=== PATIENT | female | born 1970 | race Caucasian/White ===

== ENCOUNTER 2016-10-08 22:22 | Emergency (ER) | payer MEDICAID ==
[~2016-10-08] VITALS: Ht 162.6 cm; Wt 49.9 kg
[~2016-10-08 22:22] MED LIST: ALBU8.5H5 INH; NAPR500T3 PO; OXYC-229 PO; SUMA50TA3 PO
[2016-10-08] MEDS ORDERED: HYDROcodone/APAP 5/325 TABLET PO STA (23:33)
[2016-10-08] MEDS ORDERED: HYDROcodone/APAP 5/325 TABLET ONE (23:38)
[2016-10-09 01:13] VITALS: BP 128/85
== END 2016-10-09 01:15 | disposition home or self-care (01) ==
LOC: ED 23:26
DX: S83.412A Sprain of medial collateral ligament of left knee, initial encounter (principal); S83.422A Sprain of lateral collateral ligament of left knee, initial encounter; S69.92XA Unspecified injury of left wrist, hand and finger(s), initial encounter; J44.9 Chronic obstructive pulmonary disease, unspecified; X58.XXXA Exposure to other specified factors, initial encounter; Y93.89 Activity, other specified; Y92.89 Other specified places as the place of occurrence of the external cause; Y99.8 Other external cause status
CPT/HCPCS: 99284

== ENCOUNTER 2017-03-12 00:11 | Emergency (ER) | payer MEDICAID ==
[~2017-03-12] VITALS: Ht 165.1 cm; Wt 53.8 kg
[~2017-03-12 00:11] MED LIST changes: -NAPR500T3 PO; +NAPR500T4 PO; -OXYC-229 PO; +OXYC-307 PO
[2017-03-12] MEDS ORDERED: HYDROcodone/APAP 5/325 TABLET ONE ×2 (00:54→00:55)
[2017-03-12] MEDS ORDERED: HYDROcodone/APAP 5/325 TABLET PO ONE (01:00)
[2017-03-12 01:25] VITALS: BP 137/80
== END 2017-03-12 01:27 | disposition home or self-care (01) ==
LOC: ED 00:36
DX: S00.33XA Contusion of nose, initial encounter (principal); G89.11 Acute pain due to trauma; J44.9 Chronic obstructive pulmonary disease, unspecified; X58.XXXA Exposure to other specified factors, initial encounter; Y93.89 Activity, other specified; Y92.89 Other specified places as the place of occurrence of the external cause; Y99.8 Other external cause status
CPT/HCPCS: 99283

== ENCOUNTER 2018-02-13 23:52 | Emergency (ER) | payer MEDICAID ==
[~2018-02-13] VITALS: Ht 165.1 cm; Wt 55.4 kg
[~2018-02-13 23:52] MED LIST changes: +NAPR-685 PO; -NAPR500T4 PO
[2018-02-13 23:54] VITALS: BP 149/85
[2018-02-14] MEDS ORDERED: LIDOCAINE-MPF 2%, 2ML ONE ×2 (00:08→00:16)
[2018-02-14] MEDS ORDERED: LIDOCAINE 2%, 20ML SQ ONE (00:30)
== END 2018-02-14 01:10 | disposition home or self-care (01) ==
LOC: ED 02-14 00:44
DX: S01.81XA Laceration without foreign body of other part of head, initial encounter (principal); J44.9 Chronic obstructive pulmonary disease, unspecified; Y04.8XXA Assault by other bodily force, initial encounter; F17.200 Nicotine dependence, unspecified, uncomplicated; Z88.1 Allergy status to other antibiotic agents; Z88.0 Allergy status to penicillin; Z88.5 Allergy status to narcotic agent; Z88.8 Allergy status to other drugs, medicaments and biological substances; Y99.8 Other external cause status; Y93.89 Activity, other specified; Y92.89 Other specified places as the place of occurrence of the external cause
CPT/HCPCS: 12052

== ENCOUNTER 2021-01-05 08:45 | Emergency (ER) | payer MEDICAID, OTHER ==
[~2021-01-05] VITALS: Ht 165.1 cm; Wt 56.1 kg
[~2021-01-05 08:45] MED LIST changes: -OXYC-307 PO; +OXYC-380 PO
[2021-01-05] MEDS ORDERED: HYDROcodone/APAP 5/325 TABLET PO ONE (09:30)
[2021-01-05] MEDS ORDERED: HYDROcodone/APAP 5/325 TABLET ONE (09:51)
--- NOTE | 2021-01-05 09:53 | NUR ---
PT AMBULATORY TO ROOM AT THIS TIME. DR WOOD AT BEDSIDE, REVIEWED TEST RESULTS, POC AND QUESTIONS ANSWERED. PT MED NOTED FOR PAIN. EMT AT BEDSIDE FOR SPLINT APPLICATION
[2021-01-05 10:18] VITALS: BP 122/83
--- NOTE | 2021-01-05 10:26 | NUR ---
Patient/Caregiver given discharge instructions and they have confirmed that they understand the instructions. Patient ambulatory with steady gait to wheelchair. NAD, all questions answered appropriately, denies additional needs at this time. No personal belongings left in room after discharge.
== END 2021-01-05 10:28 | disposition home or self-care (01) ==
LOC: ED 09:08
DX: S62.336A Displaced fracture of neck of fifth metacarpal bone, right hand, initial encounter for closed fracture (principal); J44.9 Chronic obstructive pulmonary disease, unspecified; X58.XXXA Exposure to other specified factors, initial encounter; Y93.89 Activity, other specified; Y92.009 Unspecified place in unspecified non-institutional (private) residence as the place of occurrence of the external cause; Y99.8 Other external cause status
CPT/HCPCS: 29125; 99283